=== PATIENT | female | born 1960 | race Caucasian/White ===

== ENCOUNTER 2023-12-11 17:59 | Outpatient (RCR) | payer OTHER, SELFPAY | END 2023-12-11 23:59 | disposition home or self-care (01) | LOC: RPT 17:59 | PROVIDERS: ATTENDING PHYSICIAN Internal Medicine Gastroenterology; FAMILY PHYSICIAN Internal Medicine | DX: N81.6 Rectocele (principal); K59.00 Constipation, unspecified; M62.81 Muscle weakness (generalized); R27.8 Other lack of coordination | CPT/HCPCS: 97014; 97112; 97140; 97162; 97530 ==

== ENCOUNTER 2024-01-02 07:58 | Outpatient (RCR) | payer OTHER, SELFPAY | END 2024-01-02 10:21 | disposition home or self-care (01) | LOC: RPT 07:58 | PROVIDERS: ATTENDING PHYSICIAN Internal Medicine Gastroenterology; FAMILY PHYSICIAN Internal Medicine | DX: N81.6 Rectocele (principal); K59.00 Constipation, unspecified; M62.81 Muscle weakness (generalized); R27.8 Other lack of coordination; Z73.6 Limitation of activities due to disability | CPT/HCPCS: 97014; 97110; 97112; 97530 ==

== ENCOUNTER → 2024-01-29 06:19 | Day surgery (SDC) | payer OTHER, SELFPAY | LOC: GI 06:19 | PROVIDERS: ATTENDING PHYSICIAN Internal Medicine Gastroenterology | DX: Z12.11 Encounter for screening for malignant neoplasm of colon (principal); D12.2 Benign neoplasm of ascending colon; D12.3 Benign neoplasm of transverse colon; K63.5 Polyp of colon; K64.0 First degree hemorrhoids | CPT/HCPCS: 45385; 45380; 88305 ==

== ENCOUNTER → 2025-06-11 19:54 | Outpatient (REF) | payer OTHER, SELFPAY | LOC: MRI 3T 19:54 | PROVIDERS: ATTENDING PHYSICIAN Surgery; FAMILY PHYSICIAN Student in an Organized Health Care Education/Training Program | DX: Z98.82 Breast implant status (principal); D05.91 Unspecified type of carcinoma in situ of right breast | CPT/HCPCS: 77049; A9585 ==

== ENCOUNTER → 2025-10-28 15:01 | Outpatient (REF) | payer OTHER, SELFPAY | LOC: MRI 3T 15:01 | PROVIDERS: ATTENDING PHYSICIAN Psychiatry & Neurology Neurology; FAMILY PHYSICIAN Student in an Organized Health Care Education/Training Program | DX: G51.31 Clonic hemifacial spasm, right (principal) | CPT/HCPCS: 70553; A9575 ==